=== PATIENT | male | born 1995 | race Caucasian/White ===

== ENCOUNTER 2018-06-03 23:16 | Emergency (ER) | payer OTHER ==
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
[2018-06-04] MEDS ORDERED: CYCLOBENZAPRINE 10 MG Prepack 2 PO PRN (01:07)
[2018-06-04] MEDS ORDERED: DEXAMETHASONE 10 MG/ML VIAL PO STA (01:07)
[2018-06-04] MEDS ORDERED: CHERRY SYRUP 10 ML UDC PO ONE (01:07)
[2018-06-04] MEDS ORDERED: HYDROcod/ACET 5/325 Prepack 4 PO STA (01:07)
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
[2018-06-04 01:24] VITALS: BP 155/70
== END 2018-06-04 01:24 | disposition home or self-care (01) ==
LOC: ED 23:16
DX: S20.211A Contusion of right front wall of thorax, initial encounter (principal); S16.1XXA Strain of muscle, fascia and tendon at neck level, initial encounter; V86.59XA Driver of other special all-terrain or other off-road motor vehicle injured in nontraffic accident, initial encounter; Y93.I9 Activity, other involving external motion; F17.200 Nicotine dependence, unspecified, uncomplicated
CPT/HCPCS: 71046; 72125; 99283; A9270

== ENCOUNTER 2018-11-16 18:50 | Emergency (ER) | payer OTHER ==
[2018-11-16 18:58] VITALS: BP 130/67
--- NOTE | 2018-11-16 19:46 | ED Physician Documentation ---
PD HPI ABD PAIN - Stated complaint Stated Complaint: MALE - Chief complaint Chief Complaint: Abd Pain - History obtained from History obtained from: Patient - History of Present Illness Timing - onset: Other (For the last 4 days he has had hematospermia, its painless. He is had a single partner recently and has low suspicion for STDs. There is no rectal pain, no testicular pain. No dysuria. He does not note hematuria.) Review of Systems Constitutional: reports: Reviewed and negative Cardiac: reports: Reviewed and negative Respiratory: reports: Reviewed and negative PD PAST MEDICAL HISTORY - Past Medical History Past Medical History: No - Past Surgical History Past Surgical History: Yes - Present Medications Home Medications: Ambulatory Orders Medication Instructions Recorded Confirmed No Known Home Medications 11/16/18 11/16/18 - Allergies Allergies/Adverse Reactions: Allergies Allergy/AdvReac Type Severity Reaction Status Date / Time No Known Drug Allergies Allergy Verified 11/16/18 18:54 - Social History Does the pt smoke?: Yes Smoking Status: Current every day smoker Does the pt drink ETOH?: Yes Does the pt have substance abuse?: No - Immunizations Immunizations are current?: Yes - POLST Patient has POLST: No PD ED PE NORMAL - Vitals Vital signs reviewed: Yes - General General: Alert and oriented X 3, No acute distress - Abdomen Abdomen: Normal bowel sounds, Soft, Non tender - Male Male : Other (Testicles are nontender, normal lie, no masses, no epididymal tenderness bilaterally.) - Neuro Neuro: Alert and oriented X 3, Normal speech Results - Vitals Vitals: Vital Signs - 24 hr 11/16/18 18:54 Temperature 36.8 C Heart Rate 90 Respiratory 16 Rate Blood Pressure 130/67 O2 Saturation 98 Oxygen O2 Source Room air - Labs Labs: Laboratory Tests 11/16/18 19:45 Urine Color YELLOW Urine Clarity CLEAR Urine pH 6.5 Ur Specific [place] <=1.005 Urine Protein NEGATIVE Urine Glucose (UA) NEGATIVE Urine Ketones NEGATIVE Urine Occult Blood NEGATIVE Urine Nitrite NEGATIVE Urine Bilirubin NEGATIVE Urine Urobilinogen 0.2 (NORMAL) Ur Leukocyte Esterase NEGATIVE Ur Microscopic Review NOT INDICATED Urine Culture Comments NOT INDICATED PD MEDICAL DECISION MAKING - ED course ED course: This is a young man who presents with hematospermia. Review of up-to-date suggests that watchful waiting is advised over specific intervention pending STD tests. Departure - Departure Disposition: 01 Home, Self Care Clinical Impression: Hematospermia Condition: Good Record reviewed to determine appropriate education?: Yes Comments: As discussed, this condition is generally benign. If it is persistent, you can talk to your doctor about a referral for urology. If STD testing is positive we will call you.
[2018-11-16 20:02] LABS: BILIRUBIN,URINE NEGATIVE (NEGATIVE); GLUCOSE, URINE (UA) NEGATIVE (NEGATIVE); KETONES,URINE (UA) NEGATIVE (NEGATIVE); LEUKOCYTE ESTERASE, URINE NEGATIVE (NEGATIVE); NITRITE,URINE NEGATIVE (NEGATIVE); OCCULT BLOOD,URINE NEGATIVE (NEGATIVE); PH,URINE 6.5 PH (5.0-7.5); PROTEIN,URINE NEGATIVE (NEGATIVE); UROBILINOGEN,URINE 0.2 (NORMAL) E.U./dL (NORMAL)
[2018-11-16 20:03] LABS: CLARITY,URINE CLEAR (CLEAR)
[2018-11-16 23:40] LABS: TRICHOMONAS VAGINALIS DNA NEGATIVE (NEGATIVE)
== END 2018-11-16 20:14 | disposition home or self-care (01) ==
LOC: ED 18:50
DX: R36.1 Hematospermia (principal); F17.200 Nicotine dependence, unspecified, uncomplicated
CPT/HCPCS: 81001; 81003; 87086; 87491; 87591; 87661; 99282; 99283

== ENCOUNTER 2022-01-10 09:45 | Outpatient (CLI) | payer OTHER ==
--- NOTE | 2022-01-10 13:26 | MRI Report ---
PROCEDURE: KNEE WO - RT INDICATIONS: KNEE PAIN TECHNIQUE: Noncontrast sagittal PD fast spin echo and T2 fast spin echo with fat saturation, sagittal 3-D spoile d GE with fat saturation; coronal T1 spin echo and PD fast spin echo with fat saturation, and axial P D fast spin echo with fat saturation through the knee. COMPARISON: None. FINDINGS: Image quality: Excellent. Anterior cruciate ligament: Intact. Posterior cruciate ligament: Intact. Medial collateral ligament: Intact. Lateral collateral ligament: Intact. Medial meniscus: Intact. Lateral meniscus: Intact. Medial and lateral tendons: The semimembranosus tendon insertions appear intact. Visualized portion s of the pes anserinus tendons appear normal. The popliteus tendon appears intact. Iliotibial band appears normal. Anterior structures: Mild proximal patellar tendinosis. Distal quadriceps tendon is intact. A mildly congenitally shallow trochlear groove is seen without patellar subluxation. No edema in the infrapate llar fat pad. Bones: No acute trabecular bone injury or fracture. Medial femorotibial cartilage: Mild generalized cartilage thinning in the weightbearing portion of t he medial femorotibial compartment. Lateral femorotibial cartilage: Cartilage fissuring and surface irregularity are seen in the articul ar cartilages of the central weightbearing portion of the lateral tibial plateau. Patellofemoral cartilage: Partial-thickness cartilage thinning is seen at the median ridge of the pa tella. Soft tissues: There is a small joint effusion. There is no medial popliteal cyst. The musculature s urrounding the knee is normal in bulk. IMPRESSION: 1.Cruciate and collateral ligaments are intact. No meniscal tear is seen. There is no acute trabecula r bone injury. 2.Mild proximal patellar tendinosis. 3.Mild tricompartmental chondromalacia, which is greater than expected for patient age. 4.Small joint effusion. Reviewed by: Ruslan Coppola MD on 01/10/2022 1:24 PM PST Approved by: Ruslan Coppola MD on 01/10/2022 1:24 PM PST Station ID: [id number]
== END 2022-01-10 09:46 | disposition home or self-care (01) ==
LOC: DI 09:45
DX: M94.261 Chondromalacia, right knee (principal); M25.461 Effusion, right knee; M67.961 Unspecified disorder of synovium and tendon, right lower leg